=== PATIENT | male | born 1950 | race Caucasian/White ===

== ENCOUNTER 2017-09-12 17:37 | Emergency (ER) | payer OTHER ==
[~2017-09-12] VITALS: Ht 175.3 cm; Wt 67.1 kg
[~2017-09-12 17:37] MED LIST: ASPIR 8181 MG PO; ATORVASTATIN CA40 MG PO; BUTALB-APAP-CA1 EACH PO; COZAAR 25 MG TA25 M1 PO; HYDROCODON-ACE1 EAC5 PO; NITROGLYCERIN0.4 MG SUBLING; NORCO 5-325 TA1 EACH PO; NORFLEX100 MG PO; PLAVIX 75 MG TA75 M1 PO; TOPROL XL50 MG PO; XARELTO20 MG PO
[2017-09-12 18:28] LABS: CALCIUM 8.7 mg/dL (8.5-10.1); CREATININE 1.2 mg/dL (0.6-1.3); POTASSIUM 3.8 mmol/L (3.5-5.1)
[2017-09-12 18:30] LABS: APTT 28.6 Seconds (25.0-31.3); INR 1.1; PROTIME 10.7 Seconds (9.20-11.50)
[2017-09-12 18:32] LABS: ABSOLUTE BASOPHILS 0.1 thou/uL (0.0-0.2); ABSOLUTE EOSINOPHILS 0.2 thou/uL (0.0-0.7); ABSOLUTE LYMPHOCYTES 1.7 thou/uL (0.8-5.3); ABSOLUTE NEUTROPHILS 5.5 thou/uL (1.6-8.1); BASOPHILS 1.1 %; HEMATOCRIT 28.7 % (42.0-52.0); HEMOGLOBIN 9.3 gm/dL (14.0-18.0); LYMPHOCYTES 20.3 %; MCHC 32.3 g/dL (28.0-37.0); MCV 80.7 fL (80.0-100.0); MONOCYTES 12.1 %; MPV 8.1 fl. (7.2-11.1); NUCLEATED RBCS 0 /100WBC; PLATELET COUNT* 298 thou/uL (150-400); POLYS 64.5 %; RBC 3.56 mil/uL (4.50-6.00); RDW-CV 20.5 % (10.5-14.5); WBC 8.5 thou/uL (4.0-11.0)
[2017-09-12 18:38] LABS: TOTAL BILIRUBIN 0.3 mg/dL (<0.1-1.0); TOTAL PROTEIN 7.4 g/dL (6.4-8.2); TROPONIN-I LEVEL 0.08 ng/mL (<0.06)
[2017-09-12 19:06] VITALS: BP 173/59
[2017-09-12 19:21] LABS: ANISOCYTOSIS 2+; PLATELET ESTIMATE ADEQUATE
[2017-09-12 19:22] LABS: MICROCYTES Occasional
--- NOTE | 2017-09-13 16:15 | EKG ---
[place] [address] ELECTROCARDIOGRAM REPORT Name: NINI CRUZ Room: [facility]#: [id number] Admission: 09/12/17 Attend Phys: Discharge: 09/12/17 Date of : 46 Report #: [id number] THIS REPORT FOR: //name// [facility] ED Test Date: 2017-09-12 Test Time: 17:43:32 Pat Name: NINI CRUZ Department: Room: Gender: M Electrical Control Assembler: : [id number] Requested By: Karlee Daniels Order Number: [id number] MD: Vern Serra Measurements Intervals [place] Rate: 89 P: 26 NE: 170 QRS: -53 QRSD: 107 T: 120 QT: 386 QTc: 470 Interpretive Statements Sinus rhythm Probable left atrial enlargement Incomplete RBBB and LAFB RSR' in V1 or V2, right VCD Compared to ECG 03/14/2017 14:40:18 Incomplete right bundle-branch block now present RSR' in V1 or V2 now present Electronically Signed On 09-13-2017 16:14:50 CDT by Vern Serra [email or web address] <ELECTRONICALLY SIGNED> By: Vern Serra MD, [facility] 09/13/17 1614 1743 1743 Vern Serra MD, [facility] /EPI
== END 2017-09-12 19:07 | disposition still patient (30) ==
LOC: M.ERS 17:37
PROVIDERS: Personal Emergency Response Attendant
DX: R07.9 Chest pain, unspecified (principal); G89.29 Other chronic pain; M54.9 Dorsalgia, unspecified; I10 Essential (primary) hypertension; I25.10 Atherosclerotic heart disease of native coronary artery without angina pectoris; F17.200 Nicotine dependence, unspecified, uncomplicated; Z86.73 Personal history of transient ischemic attack (TIA), and cerebral infarction without residual deficits